=== PATIENT | female | born 1940 | race Caucasian/White ===

== ENCOUNTER → 2017-02-27 | Outpatient (CLI) | payer OTHER, MEDICARE | LOC: FIMAGING 15:33 | PROVIDERS: ATTEND Family Medicine Geriatric Medicine | DX: Z12.31 Encounter for screening mammogram for malignant neoplasm of breast (principal) | CPT/HCPCS: G0202 ==

== ENCOUNTER 2018-02-26 06:16 | Day surgery (SDC) | payer OTHER, MEDICARE ==
[2018-02-26] MEDS ORDERED: LIDOCAINE 1% 2 ML INJ ID PRN (06:58)
[2018-02-26] MEDS ORDERED: LR 1,000 ML IV ONE (06:58)
[2018-02-26] MEDS ORDERED: LIDO/EPI 1% **for epidural** 30 ML SDV ONE (06:59)
[2018-02-26] MEDS ORDERED: MIDAZOLAM 2 MG/2 ML VIAL IVP ONE (07:54)
--- NOTE | 2018-02-26 07:54 | PDANEPAE ---
ANE Past Medical History - Cardiovascular History Hx Hypertension: No Hx Arrhythmias: No Hx Chest Pain: No Hx Coronary Artery / Peripheral Vascular Disease: No Hx CHF / Valvular Disease: No Hx Palpitations: No - Pulmonary History Hx COPD: No Hx Asthma/Reactive Airway Disease: No Hx Recent Upper Respiratory Infection: No Hx Oxygen in Use at Home: No Hx Sleep Apnea: No Sleep Apnea Screening Result - Last Documented: Negative - Neurologic History Hx Cerebrovascular Accident: No Hx Seizures: No Hx Dementia: No - Endocrine History Hx Diabetes: No - Renal History Hx Renal Disorders: No - Liver History Hx Hepatic Disorders: No - Neurological & Psychiatric Hx Hx Neurological and Psychiatric Disorders: No - Cancer History Hx Cancer: No - Congenital Disorder History Hx Congenital Disorders: No - GI History Hx Gastrointestinal Disorders: No - Other Health History Other Health History: THICKENED ENDOMETRIUM;. OA BILAT KNEE PAIN - Chronic Pain History Chronic Pain: No - Surgical History Prior Surgeries: BLEPHAROPLASTY. TONSILLECTOMY AGE 7 ANE Review of Systems Review of Systems: - Exercise capacity METS (RN): 5 METS ANE Patient History - Allergies Allergies/Adverse Reactions: No Known Allergies Allergy (Unverified 02/26/18 07:10) - Home Medications Home Medications: Aspirin 81mg (*) 02/03/18 [Last Taken 02/18/18] Vitamin D3 02/03/18 [Last Taken 02/18/18] - NPO status NPO Since - Liquids (Date): 02/26/18 NPO Since - Liquids (Time): 05:00 NPO Since - Solids (Date): 02/25/18 NPO Since - Solids (Time): 21:00 - Smoking Hx Smoking Status: Former smoker ANE Labs/Vital Signs - Vital Signs Blood Pressure: 146/89 Heart Rate: 62 Respiratory Rate: 18 O2 Sat (%): 94 Height: 154.94 cm Weight: 63.503 kg ANE Physical Exam - Airway Neck exam: FROM Mallampati Score: Class 1 Mouth exam: normal dental/mouth exam - Pulmonary Pulmonary: no respiratory distress - Cardiovascular Cardiovascular: regular rate and rhythym - ASA Status ASA Status: I ANE Anesthesia Plan Anesthesia Plan: GA w LMA
[2018-02-26] MEDS ORDERED: PROPOFOL 200 MG/20 ML VIAL ONE ×2 (08:10→08:23)
[2018-02-26] MEDS ORDERED: fentaNYL 100 MCG/2 ML INJ ONE (08:12)
--- NOTE | 2018-02-26 08:24 | PDHPUP ---
History & Physical Update H&P update statement: This history and physical update is based on an assessment of the patient which was completed after admission or registration (within 24 hours), but prior to the surgery/procedure. H&P update: H&P reviewed & patient examined, no change in patient's condition since H&P completed
[2018-02-26] MEDS ORDERED: ONDANSETRON 4 MG/2 ML VIAL ONE (08:25)
[2018-02-26] MEDS ORDERED: DEXAMETHASONE 4 MG/ML VIAL ONE (08:26)
[2018-02-26] MEDS ORDERED: LIDOCAINE 2% 5 ML SDV ONE (08:26)
[2018-02-26] MEDS ORDERED: ONDANSETRON 4 MG/2 ML VIAL IVP PRN (09:21)
[2018-02-26] MEDS ORDERED: fentaNYL 100 MCG/2 ML INJ IVP PRN (09:21)
[2018-02-26] MEDS ORDERED: NALOXONE HCL 0.4 MG/ML INJ IVP PRN (09:21)
--- NOTE | 2018-02-26 09:30 | POSTOPPROG ---
Post Op Note Date of Operation: 02/26/18 Surgeon: Uyen Chaparro Anesthesiologist: Kasi Stratton Anesthesia: LMA Pre-op Diagnosis: endometrial mass Post-op Diagnosis: endometrial fibroid Indication: endometrial mass Procedure: difficult cervical dilation, H/s myomectomy Findings: endometrial fibroid Inf/Abcess present in the surg proc area at time of surgery?: No EBL: Minimal
--- NOTE | 2018-02-26 09:44 | POSTANESTH ---
Post Anesthetic Evaluation Cardiovascular Status: Normal, Stable Respiratory Status: Normal, Stable Level of Consciousness/Mental Status: Can Participate in Eval Pain Control: Adequate, Prn Tx Ordered Nausea/Vomiting Control: Adequate, Prn Tx Ordered Complications Possibly Related to Anesthesia: None Noted
--- NOTE | 2018-02-26 10:27 | GOP ---
[f rep st] OPERATIVE REPORT DATE OF OPERATION: 02/26/2018 SURGEON: Uyen Chaparro MD ANESTHESIA: General with LMA. ANESTHESIOLOGIST: Kasi Stratton MD. PREOPERATIVE DIAGNOSIS: Endometrial mass. POSTOPERATIVE DIAGNOSIS: Extremely stenotic cervix and possible endometrial fibroid. PROCEDURE PERFORMED: Very difficult dilation of cervix and then hysteroscopic resection of endometri al mass, possible fibroid. FINDINGS: The cervix is flush with the vagina and cervical os was very difficult to find and dilate, but this was accomplished and endometrium showed a mass about 2 cm in the fundus of the uterus origi nating from the posterior wall. Normal tubal ostia and there was a small fibroid in the lower uterin e segment, measuring about 0.5 cm. ESTIMATED BLOOD LOSS: Minimal. INDICATIONS: Patient is a 77-year-old who was referred by Dr. Tiana Vargas, from [facility], for recent screening ultrasound that showed a 1.6 cm thickened endometrium that appears somewh at abnormal on ultrasound. She has had a history of abnormal Pap and several cervical biopsies and s he has had procedures done to her cervix, which she thinks has been either a LEEP or cryo in the past . Rather than doing a biopsy in the office recommend hysteroscopic evaluation and removal in the ope rating room. DESCRIPTION OF PROCEDURE: With informed consent signed patient taken to the operating room, placed u nder general anesthesia, placed in the low dorsal lithotomy position and bladder previously emptied, prepped and draped in the usual sterile fashion. Speculum placed in the vagina, but there were some strictures in the vagina that made it difficult for the speculum to open up wide enough to visualize the cervix. So with several attempts was able to do that and then again very difficult to even find the cervix or the cervical os, but with very tedious evaluating and probing for the cervical os was a ble to place the smallest dilator through an opening and continued up to about 6 mm. I had 2 tenacul um's on what I thought was the cervix for traction. After about 30 minutes of trying to find the cer vix, and then dilation, was able to dilate up to 7.5 mm and then hysteroscope placed into the uterine cavity and findings as noted above. The [employer] morcellator was then placed into the hysteroscope and the rotary blade used to resect the mass and the fibroid. This was done without complication. Hemostasis was noted. The hysteroscope removed and again hemostasis noted. Net flui d deficit was about 250 cc. The patient was then placed in supine position, awakened in the operatin g room and taken to the recovery room in stable condition. Tolerated procedure well. COMPLICATIONS: None. /[id number]/MODL
[2018-02-26 10:34] VITALS: BP 138/80
== END 2018-02-26 11:12 | disposition home or self-care (01) ==
LOC: FSGY 06:16
PROVIDERS: ATTEND Obstetrics & Gynecology Gynecology
PROC: 0UB98ZX Excision of Uterus, Via Natural or Artificial Opening Endoscopic, Diagnostic (ICD-10-PCS; principal; 2018-02-26 08:00)
DX: N84.0 Polyp of corpus uteri (principal)
CPT/HCPCS: 58558; C1782; J1100; J2250; J2405; J2704; J3010

== ENCOUNTER → 2018-04-07 | Outpatient (CLI) | payer OTHER, MEDICARE | LOC: FIMAGING 14:54 | PROVIDERS: ATTEND Internal Medicine | DX: Z12.31 Encounter for screening mammogram for malignant neoplasm of breast (principal) ==

== ENCOUNTER → 2018-07-21 | Outpatient (CLI) | payer OTHER, MEDICARE | LOC: FIMAGING 13:47 | PROVIDERS: ATTEND Orthopaedic Surgery | DX: M17.12 Unilateral primary osteoarthritis, left knee (principal); M25.462 Effusion, left knee; M71.22 Synovial cyst of popliteal space [Baker], left knee ==

== ENCOUNTER 2018-08-12 06:41 | Inpatient (IN) | payer OTHER, MEDICARE ==
[~2018-08-12 06:41] MED LIST: ROPIVACAINE 0.2% 80 MG, EPINEPHrine 0.2 MG, KETOROLAC TROMETHAMINE 30 MG in SYRINGE 0 ML IU ONE; TRANEXAMIC ACID 3,000 MG in NS (SYRINGE) 50 ML IRR ONE
[2018-08-12] MEDS ORDERED: LR 1,000 ML IV ONE (07:14)
[2018-08-12] MEDS ORDERED: DEXAMETHASONE 4 MG/ML VIAL IVP ONE (07:14)
[2018-08-12] MEDS ORDERED: LIDOCAINE 1% 2 ML INJ ID PRN (07:14)
[2018-08-12] MEDS ORDERED: FAMOTIDINE 20 MG TAB PO ONE (07:14)
[2018-08-12] MEDS ORDERED: ceFAZolin 2 GM/DEXTROSE 100 ML IV ONE (07:14)
[2018-08-12] MEDS ORDERED: ACETAMINOPHEN 325 MG TAB PO ONE (07:14)
[2018-08-12] MEDS ORDERED: TRANEXAMIC ACID 3,000 MG/50 ML BAG IRR ONE (07:59)
--- NOTE | 2018-08-12 08:07 | PDANEPAE ---
ANE History of Present Illness Knee OA ANE Past Medical History - Cardiovascular History Hx Hypertension: No Hx Arrhythmias: No Hx Chest Pain: No Hx Coronary Artery / Peripheral Vascular Disease: No Hx CHF / Valvular Disease: No Hx Palpitations: No - Pulmonary History Hx COPD: No Hx Asthma/Reactive Airway Disease: No Hx Recent Upper Respiratory Infection: No Hx Oxygen in Use at Home: No Hx Sleep Apnea: No Sleep Apnea Screening Result - Last Documented: Negative - Neurologic History Hx Cerebrovascular Accident: No Hx Seizures: No Hx Dementia: No - Endocrine History Hx Diabetes: No - Renal History Hx Renal Disorders: No - Liver History Hx Hepatic Disorders: No - Neurological & Psychiatric Hx Hx Neurological and Psychiatric Disorders: No - Cancer History Hx Cancer: No - Congenital Disorder History Hx Congenital Disorders: No - GI History Hx Gastrointestinal Disorders: No - Other Health History Other Health History: n/a - Chronic Pain History Chronic Pain: Yes (left knee) - Surgical History Prior Surgeries: 02/26/18 hysteroscopy, myomectomy with Chaparro. BLEPHAROPLASTY. TONSILLECTOMY AGE 7 ANE Review of Systems Review of Systems: - Exercise capacity METS (RN): 5 METS ANE Patient History - Allergies Allergies/Adverse Reactions: No Known Allergies Allergy (Verified 08/05/18 10:57) - Home Medications Home medications: home medication list seen and reviewed Home Medications: Aspirin [Aspirin 81mg (*)] 81 mg PO BID 07/31/18 [Last Taken 04/14/18] celeCOXIB [Celebrex (*)] 200 mg PO DAILY 07/31/18 [Last Taken 08/11/18] - NPO status NPO Since - Liquids (Date): 08/12/18 NPO Since - Liquids (Time): 05:45 NPO Since - Solids (Date): 08/11/18 NPO Since - Solids (Time): 21:00 - Anes Hx Anes Hx: no prior problems (Spinal 52 years ago for childbirth) - Smoking Hx Smoking Status: Former smoker - Family Anes Hx Family Hx Anesthesia Complications: none ANE Labs/Vital Signs - Vital Signs Blood Pressure: 154/96 Heart Rate: 62 Respiratory Rate: 18 O2 Sat (%): 98 Height: 154.94 cm Weight: 63.503 kg ANE Physical Exam - Airway Neck exam: FROM Mallampati Score: Class 2 Mouth exam: normal dental/mouth exam - Pulmonary Pulmonary: no respiratory distress - Cardiovascular Cardiovascular: regular rate and rhythym - ASA Status ASA Status: II ANE Anesthesia Plan Anesthesia Plan: spinal Regional Anesthesia: adductor canal FNB
[2018-08-12] MEDS ORDERED: MIDAZOLAM 2 MG/2 ML VIAL IVP ONE (09:09)
[2018-08-12] MEDS ORDERED: MIDAZOLAM 2 MG/2 ML VIAL ONE (09:12)
[2018-08-12] MEDS ORDERED: PROPOFOL/EMULSION 500 MG/50 ML BOTTLE IV ONE ×2 (09:13→09:59)
[2018-08-12] MEDS ORDERED: LIDOCAINE 2% 5 ML SDV ONE (09:13)
[2018-08-12] MEDS ORDERED: ONDANSETRON 4 MG/2 ML VIAL IVP PRN ×2 (09:51→10:45)
[2018-08-12] MEDS ORDERED: fentaNYL 100 MCG/2 ML INJ IVP PRN (09:51)
[2018-08-12] MEDS ORDERED: HYDROmorphONE/DILAUDID 2 MG/ML INJ IVP PRN (09:51)
[2018-08-12] MEDS ORDERED: NALOXONE HCL 0.4 MG/ML INJ IVP PRN (09:51)
[2018-08-12] MEDS ORDERED: ROPIVACAINE HCL 150 MG/30 ML INJ ONE (09:52)
[2018-08-12] MEDS ORDERED: POLYETHYLENE GLYCOL 3350 17 GM PKT PO PRN (10:45)
[2018-08-12] MEDS ORDERED: MAGNESIUM HYDROXIDE 30 ML UDCUP PO PRN (10:45)
[2018-08-12] MEDS ORDERED: PROMETHAZINE HCL 25 MG SUPPR PR PRN (10:45)
[2018-08-12] MEDS ORDERED: LACTULOSE 20 GM/30 ML UDCUP PO PRN (10:45)
[2018-08-12] MEDS ORDERED: PROMETHAZINE HCL 25 MG/ML INJ IVP PRN (10:45)
[2018-08-12] MEDS ORDERED: METOCLOPRAMIDE 10 MG/2 ML VIAL IVP PRN (10:45)
[2018-08-12] MEDS ORDERED: TEMAZEPAM 15 MG CAP PO PRN (10:45)
[2018-08-12] MEDS ORDERED: DIPHENOXYLATE/ATROPINE LOMOTIL 1 TAB PO PRN (10:45)
[2018-08-12] MEDS ORDERED: diphenhydrAMINE 25 MG CAP PO PRN (10:45)
[2018-08-12] MEDS ORDERED: BISACODYL 10 MG SUPP PR PRN (10:45)
--- NOTE | 2018-08-12 10:45 | POSTOPPROG ---
Post Op Note Date of Operation: 08/12/18 Surgeon: Cade Coronel Director Building: dajuan coronel PA-C Anesthesiologist: dr holley Anesthesia: Spinal, Other (Specify) (adductor canal block) Pre-op Diagnosis: left knee OA Post-op Diagnosis: same Indication: left knee pain Procedure: L tKA robot assisted Findings: severe knee OA Inf/Abcess present in the surg proc area at time of surgery?: No EBL: 50-100
--- NOTE | 2018-08-12 10:55 | POSTANESTH ---
Post Anesthetic Evaluation Cardiovascular Status: Similar to Pre-Op Cond Respiratory Status: Similar to Pre-op Cond. Level of Consciousness/Mental Status: Alert and Oriented Pain Control: Adequate, Prn Tx Ordered Nausea/Vomiting Control: Adequate, Prn Tx Ordered Complications Possibly Related to Anesthesia: None Noted (AC block done in PACU. No complications.)
[2018-08-12] MEDS ORDERED: LR 1,000 ML IV SCH (11:00)
[2018-08-12] MEDS ORDERED: fentaNYL 100 MCG/2 ML INJ ONE (11:20)
[2018-08-12] MEDS ORDERED: LABETALOL HCL 20 MG/4 ML INJ IVP ONE (11:44)
[2018-08-12] MEDS ORDERED: LABETALOL HCL 20 MG/4 ML INJ IVP PRN (11:48)
--- NOTE | 2018-08-12 12:19 | PDMN ---
Medical Necessity Medical necessity: Pt meets IP criteria as of 08/12/2018 per PA for L TKA; est los > 2 mn due to advanced age, pain control, and concern with history of nausea with pain meds.
[2018-08-12] MEDS: CYCLOBENZAPRINE 10 MG TAB PO PRN (14:44)
[2018-08-12] MEDS: ACETAMINOPHEN 325 MG TAB PO SCH ×2 (16:20→17:16)
[2018-08-12] MEDS: oxyCODONE IR 5 MG TAB PO PRN (16:21)
[2018-08-12] MEDS: ONDANSETRON DISINTEGRATING 4 MG TAB PO PRN (16:23)
[2018-08-12] MEDS: ceFAZolin 2 GM/DEXTROSE 100 ML IV SCH (17:17)
[2018-08-12] MEDS: ASPIRIN 81 MG CHEWABLE TAB PO SCH (20:28)
[2018-08-12] MEDS: SENNOSIDES/DOCUSATE SODIUM TAB PO SCH (20:28)
[2018-08-12] MEDS: FAMOTIDINE 20 MG TAB PO SCH (20:28)
[2018-08-13] MEDS: oxyCODONE IR 5 MG TAB PO PRN ×2 (00:11→07:57)
[2018-08-13] MEDS: ACETAMINOPHEN 325 MG TAB PO SCH ×2 (00:12→04:37)
[2018-08-13] MEDS: ONDANSETRON DISINTEGRATING 4 MG TAB PO PRN ×2 (00:12→07:56)
[2018-08-13] MEDS: ceFAZolin 2 GM/DEXTROSE 100 ML IV SCH (00:12)
[2018-08-13 07:31] VITALS: BP 157/83
[2018-08-13] MEDS: ASPIRIN 81 MG CHEWABLE TAB PO SCH (07:57)
[2018-08-13] MEDS: FAMOTIDINE 20 MG TAB PO SCH (07:58)
[2018-08-13] MEDS: SENNOSIDES/DOCUSATE SODIUM TAB PO SCH (07:58)
--- NOTE | 2018-08-13 08:31 | GOP ---
DATE OF OPERATION: 08/12/2018 SURGEON: Chandan Biggs MD PHOTOGRAPH RETOUCHER: Sofia Biggs, LUZ. ANESTHESIA: Spinal. PREOPERATIVE DIAGNOSIS: Left knee osteoarthritis. POSTOPERATIVE DIAGNOSIS: Left knee osteoarthritis. PROCEDURE PERFORMED: Left total knee arthroplasty with computer navigation, robotic assist. FINDINGS: ESTIMATED BLOOD LOSS: 30 cc. INDICATIONS: The patient is a 78-year-old female with severe and progressive pain and deformity of t he left knee unresponsive to conservative care. The risks and benefits of surgical intervention were explained in detail. DESCRIPTION OF PROCEDURE: The patient was brought to the operative room and placed on the table in t he supine position. Spinal anesthesia was induced without difficulty. A pneumatic tourniquet was appl ied about the left proximal thigh, and the leg was prepped and draped in a sterile fashion. The leg h older was applied. After exsanguination by elevation the tourniquet was inflated to 250 mmHg. Incision was made anterior medial from the tibial tuberosity to a point 2 cm proximal to the superior pole of the patella. Medial parapatellar arthrotomy was carried out from the superior pole of the pa tella and posteriorly in line with the fibers of the Type II VMO. The medial collateral ligament was elevated and the infrapatellar fat pad was resected. The patella was everted and the articular surface was excised. A 29 mm patellar button was placed. Attention was turned first to the distal aspect of the femur. After exposure of the femur, 2 half pi ns were placed for fixation of the femoral array. In a similar fashion, 2 pins were placed anteromed ial on the tibia for fixation of the tibial array. External land marking and registration of the hip center were performed without difficulty. Internal femoral and tibial registration were carried out without difficulty and the femoral and tibial checkpoints were placed and verified for accuracy. Attention was turned to the femur. The foot print for the size 3 femoral component was cut with the saw using the Fanminder robotic system and verified for accuracy against the CT based plan. In a similar f ashion, the saw was used to cut the footprint for the size 3 tibial component using the Fanminder system an d verified for accuracy against the CT based plan. The tibial articular surface was excised without d ifficulty, followed by the intercondylar box cut. The knee was extended and the remnants of the medial and lateral meniscus were excised. The posterior capsule was injected with ropivacaine, epinephrine and Toradol. A size 3 tibial tray was positioned . Trial reduction was then carried out. There was excellent range of motion, alignment, and stability using the 3 x 9 mm polyethylene. All trials were then removed. The joint was thoroughly irrigated and carefully dried. The press-fit c omponents were implanted. The permanent 3 x 9 mm polyethylene was placed without difficulty. The tourniquet was deflated and all bleeders were coagulated. The wound was thoroughly irrigated and closed using interrupted sutures of 2-0 Vicryl for the joint capsule. The subcu was closed with 3-0 V icryl and the skin with 4-0 Monocryl. Dermabond and Steri-Strips were applied followed by a compress mary jo dressing. The patient was then moved from the operating room to the recovery room in good conditi on, having tolerated the procedure well. PATHOLOGY: Severe tricompartmental osteoarthritis. /[id number]/MODL
--- NOTE | 2018-08-13 09:41 | ASDISCHSUM ---
Discharge Information Plan Status:Home with No Needs Medically Cleared to Leave:08/12/2018 Discharge Date:08/12/2018 CM D/C Disposition:Home, Routine, Self-Care ADT D/C Disposition:Home, Routine, Self-Care Projected Discharge Date:08/12/2018 Transportation at D/C: Discharge Delay Reason: Follow-Up Date:08/12/2018 Discharge Slot: Final Diagnosis: Placement Information Patient Contact Information Contact Name:HERB Relationship:Life Partner Address:[address] City: [facility] Phone: State/Zip Code: Email: Financial Information Financial Class:Medicare Primary Plan Desc:MEDICARE INPATIENT Primary Plan Number:[id number] Secondary Plan Desc:RADHA/KERMIT SUPPLEMENT Secondary Plan Number:[id number] Assessment Information LACE LACE Length of stay for Answers: 1 day current admission Acuity / Level of Answers: Yes Care: Did the patient have an inpatient admission? Comorbidities - select Answers: Opioid dependence all that apply / Chronic pain # of Emergency department Answers: 0 visits in the last 6 months Score: 8 Date Signed: 08/13/2018 09:39 AM Electronically Signed By:Kathy Guevara RN Case Management Discharge Plan Note Case Management Discharge Discharge Order Complete? Answers: Yes Discharge Comments Notes: 08/13/2018 Case Management Note No discharge case management needs identified. Pt to discharge home with follow up as directed. Date Signed: 08/13/2018 09:40 AM Electronically Signed By:Kathy Guevara RN Intervention Information
[2018-08-13] MEDS: CYCLOBENZAPRINE 10 MG TAB PO PRN (10:48)
--- NOTE | 2018-08-13 11:11 | SOAPPROG ---
SOAP Progress Note Assessment/Plan: Assessment: Patient is doing well POD 1 s/p L TKA Pain management: pain is well controlled on oral pain meds. VTE ppx: recommend aspirin 81 mg BID for 4 weeks, cont NIKHIL and SCDs Anemia: level is expected initially postop. Asymptomatic. Continue to monitor D/c planning: Patient has done better than anticipated. Pain has been minimal and patient has tolerated narcotic pain meds well. Patient would prefer to go home today. Ok for discharge to home if patient is released from PT Plan: 08/13/18 11:10 08/13/18 11:11 Subjective: patient is doing well , denies SOB, chest pain and N/V Objective: Vital Signs Temp Pulse Resp BP Pulse Ox 36.3 C 67 14 157/83 H 100 08/13/18 07:30 08/13/18 07:30 08/13/18 07:30 08/13/18 07:30 08/13/18 07:30 Laboratory Results 08/13/18 04:26 08/13/18 04:26 08/12/18 08/13/18 08/14/18 05:59 05:59 05:59 Intake Total 2571 Output Total 1780 400 Balance 791 -400 LLE: incision dressing is clean and dry, NVI, +pf/df ICD10 Worksheet Patient Problems: Problems Problem Status Onset Primary localized osteoarthritis of left knee Acute
== END 2018-08-13 11:44 | disposition home or self-care (01) | DRG 470 ==
LOC: F3N 06:41
PROVIDERS: ADMIT Orthopaedic Surgery; ATTEND Orthopaedic Surgery
DX: M17.12 Unilateral primary osteoarthritis, left knee (principal); Z87.891 Personal history of nicotine dependence
CPT/HCPCS: 97116-GP; 97161-GP; G8978-GP-CJ; G8979-GP-CI; G8980-GP-CI; J0171; J0690; J1100; J1885; J2250; J2704; J2795; J3010

== ENCOUNTER → 2019-01-13 | Outpatient (CLI) | payer OTHER, MEDICARE | LOC: FIMAGING 13:20 | PROVIDERS: ATTEND Internal Medicine | DX: Z13.820 Encounter for screening for osteoporosis (principal); M85.89 Other specified disorders of bone density and structure, multiple sites; Z78.0 Asymptomatic menopausal state ==